=== PATIENT | female | born 1980 | race Caucasian/White ===

== ENCOUNTER → 2021-12-28 00:49 | Outpatient (CLI) | payer MEDICAID, SELFPAY ==
--- NOTE | 2021-12-28 14:00 | DI.US_ITS ---
Exam(s) US BREAST RT LIMITED MG MAMMO DIAGNOSTIC BI EXAM: MG MAMMO DIAGNOSTIC BI CLINICAL HISTORY: RT BREAST MASS 9 O'CLOCK, 1/2 DIAMETER, MOBILE; BASELINE MAMMO. TECHNIQUE: Bilateral full field digital CC and MLO mammographic images were obtained with 3D tomosyn thesis and utilizing computer aided detection (CAD). Craniocaudal and mediolateral oblique Full Field Digital Mammography views with Computer Aided Diagno sis followed by Tomosynthesis and right breast ultrasound. COMPARISON: Available for comparison. US US BREAST RT LIMITED from 12/28/2021. Baseline examination. FINDINGS: Masses/Architectural Distortion: None seen. Microcalcifications: No suspicious pleomorphic-type are seen. Skin Thickening/Nipple Retraction: None. Right breast US: Echotexture: Normal appearance of the glandular tissue. Shadowing: No suspicious foci. Cyst: 16 x 9 x 11 centimeter cyst in the 8 o'clock position 3 centimeters from the nipple, correspond ing to the palpable abnormality. Adjacent cyst measuring 8 x 4 x 8 millimeters in the 8 o'clock posi tion 4 cm from the nipple. IMPRESSION: 1. No significant interval change with no specific features of malignancy noted. Palpable abnormality corresponds to a 1.6 centimeters cyst. 2. Unless there is more urgent need, annual screening mammography is recommended, as per [place] [employer] guidelines. BI-RADS Category 1-negative Breast Density - Category D - extremely dense Breast Density Category D: The mammogram demonstrates the patient's breast tissue is dense. Dense melvin ast tissue is very common and is not abnormal but dense breast tissue can make it harder to find canc er on a mammogram. Also, dense breast tissue may increase their breast cancer risk. This information about the result of the mammogram report was provided to the patient to raise their awareness. Use th is report when you speak with the patient about their risks for breast cancer, which includes their f amily history. At that time, you may recommend for more screening tests (Ultrasound or MRI) as they m ight be useful based on their risk. A negative radiographic report should not delay biopsy if a dominant or clinically suspicious mass is present. Up to ten percent of cancers are not identified on mammography. A negative report may reinforce clinical impression. Adenosis and dense breasts may obscure an underlying neoplasm. False positive reports average 6 to 10%.
== END ==
PROVIDERS: PCP Naturopath; Visit Provider Naturopath
DX: N60.01 Solitary cyst of right breast (principal)
CPT/HCPCS: 76642; 77062; 77066; G0279

== ENCOUNTER → 2024-02-20 02:35 | Outpatient (CLI) | payer MEDICAID, SELFPAY ==
--- OUTSIDE RECORDS SUMMARY | 2024-02-15 00:37 | XMS_ITS | Encounter Summary ---
Author Organization [facility] Address [address] [place] [address] Care Team Providers Care Program Administrator Name Role Phone Radha Crocker ND Primary Care Provider + Encounter Details Date Type Department Care Team (Latest Contact Info) Description 10/02/2020 Travel Social History Tobacco Use Types Packs/Day Years Used Date Smoking Tobacco: Never Smokeless Tobacco: Never Interpersonal Safety Answer Date Record ed Physically Hurt Never 09/20/2020 Verbally Threaten Not on file 09/20/2020 Sex and Gender Information Value Date Recorded Sex Assigned at Not on file Gender Identity Female 10/02/2020 13:40 EST Sexual Orientation Not on file COVID-19 Exposure Response Date Recorded In the last month, have you been in contact with someone who was confirmed or suspected to have Coronavirus / COVID-19? No / Unsure 10/02/2020 13:41 EST documented as of this encounter Plan of Treatment Not on file documented as of this encounter Visit Diagnoses Not on filedocumented in this encounter Care Teams Program Administrator Relationship Specialty Start Date End Date Radha Crocker ND [address] [place] [phone] PCP - General 09/28/20 documented as of this encounter
--- OUTSIDE RECORDS SUMMARY | 2024-02-15 00:37 | XMS_ITS | Encounter Summary ---
Author Organization [facility] Address [address] [place] [address] Care Team Providers Care Oil Dispenser Name Role Phone Radha Crocker ND Primary Care Provider + Reason for Visit * Reason Comments Rash Encounter Details Date Type Department Care Team (Late st Contact Info) Description 10/09/2020 10:20 EDT Telemedicine [facility] Dermatology [address]th [address] [address] Marilin Hale MD PhD [address] [place] [address], [address] [place] [phone] Dermal hypersensitivity reaction (Primary Dx) Social History Tobacco Use Types Packs/Day Years [...] 13:41 EST documented as of this encounter Progress Notes * Marilin Hale MD - 10/09/2020 1020 EDT DERMATOLOGY TELEPHONE VISIT ESTABLISHED PATIENT 10/09/2020 Dermatology History: No specialty comments available. Chief Complaint: Rash Subjective: Jigna Loyola is a 40 y.o. who presents for telehealth visit for biopsy results. She hasbeen applying topical triamcinolone as directed without any noticeable. improvement. Interestingly,she has not been applying it to the lower back lesion that was biopsied but that spot is significantly smaller. She wonders if the immune system is busy with healing her biopsy site and that is distracting it from the rash. Objective: Pertinent exam findings the patient can observe: Biopsy site plaque significantly improved and smaller in size. Other locations stable. Lab Results Component Value Date FINALDX 10/02/2020 A. SKIN OF BACK, LOWER, PUNCH BIOPSY: - Sparse superficial perivascular dermatitis with melanophages. See microscopic and comment. Assessment and Plan: Dermal hypersensitivity reaction -Benign but non-diagnostic biopsy results relayed to the patient -Offered trial of a saline flush to a single lesion to see if it will re-set the local immune response. Follow Up: Patient can contact us through [employer] or call if skin concerns arise. Return in about 2 weeks (around 10/23/2020) for with Dr. Hale for saline injection (20min). Today's visit was provided through telemedicine telephone conferencing: ??? Patient location: Home ??? Provider location:Workplace ??? The following staff participated in today's encounter visit: Dr. Hale The concept of ???Telemedicine?? has been described to the patient.? Patient has been informed of the anticipated benefits and possible risks.? Patient understands the information provided regardingtelemedicine, has had the opportunity to ask questions about this information, and all questions have been answered to patient???s satisfaction. Patient consents for the use of telemedicine in his/her medical care and authorizes the transmission of any relevant medical information to providers and their staff involved in patient???s medical or mental health care. ??? For full Medical, Surgical, Family, and Social histories as well as Review of Systems, Medications and Allergies please see those sections of this encounter in the electronic chart which I have personally reviewed. This visit was conducted by telephone. I spent a total of 5 minutes in discussion with the patient as described in the progress note. Marilin Hale MD 10/09/2020 10:54 [facility], Division of Dermatology documented in this encounter Plan of Treatment Not on file documented as of this encounter Visit Diagnoses Diagnosis Dermal hypersensitivity reaction- Primary Contact dermatitis and other eczema, due to unspecified cause documented in this encounter Care Teams Oil Dispenser Relationship Specialty Start Date End Date Radha Crocker ND [address] [place] [phone] PCP - General 09/28/20 documented as of this encounter
--- OUTSIDE RECORDS SUMMARY | 2024-02-15 00:37 | XMS_ITS | Encounter Summary ---
Author Organization [facility] Address [address] [place] [address] Care Team Providers Care Genetic Technologist Name Role Phone Radha Crocker ND Primary Care Provider + Reason for Visit * Reason Onset Date Comments Appointment Related 10/09/2020 Encounter Details Date Type Department Care Team (Late st Contact Info) Description 10/09/2020 Telephone [facility] Dermatology 3rd Floor [address] [address] Marilin Hale MD PhD [address] [place] [address], [address] [place] [phone] Appointment Related Social History Tobacco Use Types Packs/Day Years [...] 13:41 EST documented as of this encounter Miscellaneous Notes * Telephone Encounter - Sofie Kowalski - 10/09/2020 1101 EDT Please schedule OV with Dr. Hale in 2 weeks (around 10/23) for saline injection (20 minutes) documented in this encounter Plan of Treatment Not on file documented as of this encounter Visit Diagnoses Not on filedocumented in this encounter Care Teams Genetic Technologist Relationship Specialty Start Date End Date Radha Crocker ND [address] [place] [phone] PCP - General 09/28/20 documented as of this encounter
--- OUTSIDE RECORDS SUMMARY | 2024-02-15 00:37 | XMS_ITS | Referral Summary ---
Author Organization [facility] Address [address] [place] [address] Care Team Providers Care Director E Learning Name Role Phone Radha Crocker ND Primary Care Provider + Allergies No known active allergies Medications Medication Sig Dispensed Refills Start Date End Date Status triamcinolone (KENALOG) 0.1 % cream Apply topically to affected area 2 times daily. To rash on trunk and extremities. Do not apply to face, armpit or groin. 80 g 5 10/02/2020 Active Active Problems No known active problems Social History Tobacco Use Types Packs/Day Years Used Date Smoking Tobacco: Never Smokeless Tobacco: Never Interpersonal Safety Answer Date Record ed Physically Hurt Never 09/20/2020 Verbally Threaten Not on file 09/20/2020 Sex and Gender Information Value Date Recorded Sex Assigned at Not on file Gender Identity Female 10/02/2020 13:40 EST Sexual Orientation Not on file Plan of Treatment Not on file Care Teams Director E Learning Relationship Specialty Start Date End Date Radha Crocker ND [address] [place] [phone] PCP - General 09/28/20
--- OUTSIDE RECORDS SUMMARY | 2024-02-15 00:37 | XMS_ITS | Encounter Summary ---
Author Organization [facility] Address [address] [place] [address] Care Team Providers Care Student Success Coach Name Role Phone Radha Crocker ND Primary Care Provider + Reason for Visit * Reason Onset Date Comments Other 10/02/2020 Encounter Details Date Type Department Care Team (Late st Contact Info) Description 10/02/2020 Telephone [facility] Dermatology [address]th [address] [address] Marilin Hale MD PhD [address] [place] [address], [address] [place] [phone] Other Social History Tobacco Use Types Packs/Day Years [...] encounter Miscellaneous Notes * Telephone Encounter - Ashleigh Olivera - 10/05/2020 7407 EDT Patient will call her PCP office to schedule an appointment. Patient will call back if they decline removing her sutures. * Telephone Encounter - Nora Bonilla - 10/02/2020 1342 EST Patient had an appointment with Dr. Hale today (10/02/2020) where she was asked to set up an appointment to get her sutures removed. Patient is requesting to have them removed at the office of her PCP. PCP has been confirmed - please advise. documented in this encounter Plan of Treatment Not on file documented as of this encounter Visit Diagnoses Not on filedocumented in this encounter Care Teams Student Success Coach Relationship Specialty Start Date End Date Radha Crocker ND [address] [place] [phone] PCP - General 09/28/20 documented as of this encounter
--- OUTSIDE RECORDS SUMMARY | 2024-02-15 00:37 | XMS_ITS | Encounter Summary ---
Author Organization [facility] Address [address] [place] [address] Care Team Providers Care Data Operations Leader Name Role Phone Unknown, Provider Primary Care Provider Encounter Details Date Type Department Care Team (Late st Contact Info) Description 01/07/2013 Results Only [facility] Laboratory Services - [facility] ([facility]) [address] [place], [place] [phone] Liliana Mauro, [address] [place] [phone] Social History Tobacco Use Types Packs/Day Years Used Date Smoking Tobacco: Never Assessed Sex and Gender Information Value Date Recorded Sex Assigned at Not on file Gender Identity Female 10/02/2020 13:40 EST Sexual Orientation Not on file documented as of this encounter Plan of Treatment Not on file documented as of this encounter Procedures Procedure Name Priority Date/Time Associated Diagnosis Comments PAP TEST- RESULT ONLY Routine 01/07/2013 0:00 EDT documented in this encounter Results * PAP TEST- RESULT ONLY (01/07/2013 0:00 EDT) Pathology Report: CYTOPATHOLOGY REPORT Reports generated via electronic interface contain original data; however they are lacking the format of the original report. Caution should be taken when reading/interpreti ng unformatted reports. Name: ? CHERYLEKahlil JIGNA E ? Accession #: ? [id number] : ? 1980 (Age: 32) ??F ?Collect Date: ? 01/07/2013 Location: ? [facility] ? Receive Date: ? 01/08/2013 Provider: ?LILIANA MAURO CUSTOMER PRICING MANAGER Copy to: ?HARSH ARCHDEACON ND ? Specimen/Source: ?Pap Test, Cervix/Endocervix, ThinPrep Imaging System with manual evaluation Last Menstrual Period: ? 2010 Other: ? Additional clinical information: breast feeding ? SPECIMEN ADEQUACY ? Satisfactory for Evaluation - transformation zone component present GENERAL CATEGORIZATION ? Negative for Intraepithelial Lesion or Malignancy ? Document reviewed and electronically signed by: ? GARRETT Duong(ASCP) ? Report Date: ??01/12/2013 11:39 End of Report SHANIA MCMILLAN 01/07/2013 01/08/2013 Liliana Mauro CUSTOMER PRICING MANAGER PATHOLOGY ORDERABLES SHANIA MCMILLAN [address] [place] [address] documented in this encounter Visit Diagnoses Not on filedocumented in this encounter Care Teams Data Operations Leader Relationship Specialty Start Date End Date Unknown, Provider, PCP - General 01/08/13 09/27/20 documented as of this encounter
--- OUTSIDE RECORDS SUMMARY | 2024-02-15 00:37 | XMS_ITS | Clinical Summary ---
Author Organization [facility] Address [address] [place] [address] Care Team Providers Care Research Professor Of Biostatistics Name Role Phone Radha Crocker ND Primary [...] 13:40 EST Sexual Orientation Not on file Obstetrics History Plan of Treatment Health Maintenance Due Date Last Done Comments Hepatitis C Screen 1980 Hepatitis B Vaccine (1 of 3 - 19+ 3-dose series) 08/01 COVID-19 Vaccine (2022-24 season) 2023 Care Teams Research Professor Of Biostatistics Relationship Specialty Start Date End Date Radha Crocker ND [address] [place] [address] AMANDA NAJERA [phone] PCP - General 09/28/20
--- OUTSIDE RECORDS SUMMARY | 2024-02-15 00:37 | XMS_ITS | Encounter Summary ---
Author Organization [facility] Address [address] [place] [address] Care Team Providers Care Agricultural Economics Teacher Name Role Phone Radha Crocker ND Primary Care Provider + Reason for Visit * Reason Comments New Patient Visit itchy hyperpigmentat ion on back and hips. Room 6 * Referral (Routine) - Closed Specialty Diagnoses / Procedures Referred By Conthebert t Referred To Contact Dermatology Diagnoses Hyperpigmented skin lesion Radha Crocker ND [address] [place] [phone] [employer] Dermatology [address] [place] [id number] Referral ID Status Reason Start Date Expiration Date Visits Re quested Visits Authorized [id number] Closed 1 1 Encounter Details Date Type Department Care Team ([facility] Contact Info) Description 10/02/2020 12:50 EST Office Visit [facility] Dermatology 5th Floor [facility] [address] [place] [address] Marilin Hale MD PhD [address] [facility], [address] [place] [address] Rash (Primary Dx); Pruritus Social History Tobacco Use Types Packs/Day Years [...] 13:41 EST documented as of this encounter Patient Instructions * Patient Instructions* Maria Cruz MD - 10/02/2020 12:50 EST DERMATOLOGY WOUND CARE INSTRUCTIONS FOR SKIN BIOPSY The DRESSING/BANDAID should remain in place for 24 hours. You may shower or bathe after 24 hours; remove the bandage and replace it after the shower. DISCOMFORT: Extra-Strength Tylenol, as directed by molded goods spot picker, usually relieves any pain you may have. BLEEDING: You may notice some blood on the edges of the dressing the first day and this is NORMAL. If the bleeding soaks through the dressing, remove the dressing, and apply firm, steady pressure with a moist clean wash cloth for fifteen minutes. If the bleeding stops, redress the wound, if not, call our office at . ACTIVITY: You may resume normal activity in 1 day unless instructed otherwise. WOUND CARE: ?? Wash hands with soap and water before changing the dressing. ?? Change the dressing daily and when it becomes wet. Clean the wound daily with mild soap and water. You may gently loosen any crusts with a cotton swab. The wound may be slightly tender and may bleed a small amount. A small amount of discharge is normal. Apply a thin layer of sterile petroleum jelly over the wound. Cover the wound with a Telfa (non-stick) dressing or bandage. It is important to keep the wound covered. CONTACT THE OFFICE IF YOU EXPERIENCE: ?? increased redness ?? warmth to touch ?? increased pain ?? drainage with a foul odor ?? rapid swelling of the wound ?? fever or chills Please call our office or . documented in this encounter Ordered Prescriptions Prescription Sig Dispensed Refills Start Date End Da te triamcinolone (KENALOG) 0.1 % cream Apply topically to affected area 2 times daily. To rash on trunk and extremities. Do not apply to face, armpit or groin. 80 g 5 10/02/2020 documented in this encounter Progress Notes * Christine Marmolejo MA - 10/02/2020 1250 EST Review of Systems Constitutional: Negative for fatigue, fever and unexpected weight change. HENT: Negative for mouth sores. Eyes: Negative for pain. Respiratory: Negative for cough and shortness of breath. Cardiovascular: Negative for chest pain and palpitations. Gastrointestinal: Negative for abdominal pain, blood in stool, constipation, diarrhea, nausea and vomiting. Genitourinary: Negative for dysuria, frequency and hematuria. Musculoskeletal: Negative for myalgias, joint swelling, arthralgias and muscle stiffness in the morning. Skin: Negative for rash. Neurological: Negative for numbness and headaches. Endo/Heme/Allergies: Does not bruise/bleed easily. Psychiatric/Behavioral: Positive for sleep disturbance. The patient is not nervous/anxious. CHRISTINE MARMOLEJO MA 10/02/2020 12:50 * Maria Cruz MD - 10/02/2020 1250 EST Images from the original note were not included. Dermatology Outpatient Visit Note Chief Complaint Patient presents with ??? New Patient Visit itchy hyperpigmentation on back and hips Dermatologic History: No specialty comments available. Last Dermatology office visit: New Patient Visit SUBJECTIVE Ms. Loyola is a 40 y.o. female who presents for new evaluation and treatment for itchy hyperpigmented patches on her back and hips, present for approximately 2 years. She originally thought it was dry itchy skin, but she has been moisturizing her skin without significant improvement. She has noticed a silvery look to the skin overlying the patches on occasion. She does not recall the spots beingpink in color, only dark in color. She denies a history of eczema or asthma. Denies a family history of eczema. Reports mild seasonal allergies. She currently has no medications in their medication list. She has No Known Allergies. OBJECTIVE Ms. Loyola is healthy, well developed, well-nourished and in no acute distress female sitting on the examination table with a normal affect. She has Welsh type II skin. Cutaneous full body examination including the hair, scalp, face, eyelids, lips, neck, chest, back, abdomen, all four extremities, hands, feet, digits and nails was performed.The examination was normal with the addition of the following comments: -back, hips: scattered 1.5 cm - 5 cm oval hyperpigmented patches ASSESSMENT/PLAN Rash -Recommended biopsy of the lesion located on the lower back given the diagnostic uncertainty. Ddx includes morphea vs multifocal fixed drug eruption vs mycosis fungoides vs eczema vs psoriasis vs macular amyloidosis vs lichen sclerosus et atrophicus vs erythema migrans vs other - Patient was advised of the risks of biopsy, including pain, infection, bleeding, and inevitability of scar formation. Patient was made aware he/she will be called with biopsy results when available, at which time further treatment recommendations will be made based on the results attained. The pat ient understood and was in agreement with this plan. - Lab ordered today: Lyme Ab Pruritus -Start topical triamcinolone 0.1% cream to be applied BID to hyperpigmented patches on trunk for itch. Avoid face, armpits, groin. Med Orders Placed This Visit and Additions to the Medication List Medications ??? triamcinolone (KENALOG) 0.1 % cream Sig: Apply topically to affected area 2 times daily. To rash on trunk and extremities. Do not applyto face, armpit or groin. Dispense: 80 g Refill: 5 She will f/u in 1 week for telephone visit to discuss biopsy results of rash as planned or in the interim should problems arise. Maria Cruz MD 10/02/2020 13:06 Attestation Statement: I saw and examined the patient with the resident/fellow. I agree with the findings and plan of care documented in the resident's/fellow's note. I was present during the adams andcritical portions of the procedure and agree with the resident's/fellow note. Mairlin Hale MD Dermatology [facility] For full Medical, Surgical, Family, and Social histories, please see the History section of this encounter in the electronic chart which I have personally reviewed. For Review of Systems, Medications and Allergies, please see those sections of this encounter in the electronic chart which I have also reviewed. documented in this encounter Miscellaneous Notes * Result Encounter Note - Marilin Hale MD - 10/02/2020 1250 EST Normal, please contact the patient to tell her about the results: no lyme. No changes to plan. Lyme AbNegativeNegative Comment: New 3rd generation assay in use 01/01/2020 Marilin Hale MD 10/05/2020 16:08 * Result Encounter Note - Marilin Hale MD - 10/02/2020 1250 EST Notified patient of diagnosis. See clinic note. Lab Results Component Value Date FINALDX 10/02/2020 A. SKIN OF BACK, LOWER, PUNCH BIOPSY: - Sparse superficial perivascular dermatitis with melanophages. See microscopic and comment. [FORMATTING REMOVED] Marilin Hale MD documented in this encounter Plan of Treatment Not on file documented as of this encounter Procedures Procedure Name Priority Date/Time Associated Diagnosis Comments LYME AB Routine 10/02/2020 13:54 EST Rash SURGICAL PATHOLOGY Routine 10/02/2020 13 :10 EST Rash documented in this encounter Results * LYME AB (10/02/2020 13:54 EST) Lyme Ab Negative Negative 10/05/2020 11:15 EDT [facility] Comment:New 3rd generation a ssay in use 01/01/2020 Blood VENOUS BLOOD / Unknown Venipuncture / Unknown 10/02/2020 13:54 EST 10/02/2020 14:37 EST Marilin Hale MD PhD IMMUNOLOGY AND SE ROLOGY ORDERABLES [facility] [address] [place] [address] * SURGICAL PATHOLOGY (10/02/2020 13:10 EST) Final Diagnosis A. SKIN OF BACK, LOWER, PUNCH BIOPSY: - Sparse superficial perivascular dermatitis with melanophages. See microscopic and comment. 10/06/2020 11:12 [facility] Diagnosis Comment The findings are most suggestive of postinflammatory pigmentary alteration. Amyloid is not noted by Congo red staining. There is relatively sparse inflammation within the dermis, but no well-developed atypia or epidermal extension to support a diagnosis of cutaneous T-cell lymphoma. Neither well-developed spongiosis or interface alteration are identified to support an eczematous process or fixed-drug eruption, respectively. 10/06/2020 11:12 [facility] Attestation By the signature below, the attending physician certifies that they have 1) personally conducted a gross and/or microscopic examination of the described specimen(s), and/or personally interpreted the results of laboratory testing of the described specimen(s), and 2) personally rendered or confirmed the above diagnosis. 10/06/2020 11:12 [facility] at 1112 Microscopic Description Sections consist of a punch biopsy of skin. There is basket weave orthokeratosis overlying an epidermis which shows a variable distribution of melanin pigment within the keratinocytes. There is no evidence of interface alteration. Within the superficial papillary dermis is slight homogenization of the collagen, but no definitive amyloid by Congo red stain. Dermal melanophages are present. There is a sparse, superficial perivascular lymphomononuclear infiltrate. Within the deeper dermis, the collagen bundles show fenestrations with associated foci of hemorrhage. Deeper levels have been examined. 10/06/2020 11:12 [facility] Clinical History Lower back, hyperpigmented pruritic patches on trunk; PIH vs morphea vs MF vs eczema vs multifocal fixed drug vs macular amyloid vs other; clinical diagnosis code: R21 10/06/2020 11:12 EDT [facility] Gross Description A. Received in formalin labelled with proper patient identification (initials P, E) and lower back is a punch biopsy of cunningham-brown skin (0.4 cm in diameter by 0.6 cm in depth). The specimen is bisected and submitted entirely in A1. JENNA REICH(ASCP) 10/02/2020 14:41 10/06/2020 11:12 EDT [facility] Performing Lab [facility] 10/06/2020 11:12 EDT [facility] Scanned Images 10/06/2020 11:12 T [facility] Tissue TISSUE SPECIMEN FROM SKIN / Unknown Collection, Other / Unknown 10/02/2020 13:10 EST 10/02/2020 14:21 EST Marilin Hale MD PhD PATHOLOGY ORDERAB LES [facility] [address] [place] [address] documented in this encounter Visit Diagnoses Diagnosis Rash- Primary Rash and other nonspecific skin eruption Pruritus Unspecified pruritic disorder documented in this encounter Care Teams Agricultural Economics Teacher Relationship Specialty Start Date End Date Radha Crocker ND [address] [place] [phone] PCP - General 09/28/20 documented as of this encounter
--- NOTE | 2024-02-20 | DI.MAMMO_ITS ---
Exam(s) MAMMO SCREENING EXAM: MAMMO SCREENING CLINICAL HISTORY: Z12.31 Screening. TECHNIQUE: Bilateral full field digital CC and MLO mammographic images were obtained with 3D tomosyn thesis and utilizing computer aided detection (CAD). COMPARISON: 28 December 2021 FINDINGS: Masses: None seen. Architectural Distortion: None seen. Microcalcifications: No suspicious pleomorphic-type are seen. Skin Thickening/Nipple Retraction: None. IMPRESSION: 1. No significant interval change with no specific features of malignancy noted. 2. Unless there is more urgent need, annual screening mammography is recommended, as per [place] [employer] guidelines. BI-RADS Category 1-negative Breast Density - Category D - extremely dense Breast Density Category D: The mammogram demonstrates the patient's breast tissue is dense. Dense melvin ast tissue is very common and is not abnormal but dense breast tissue can make it harder to find canc er on a mammogram. Also, dense breast tissue may increase their breast cancer risk. This information about the result of the mammogram report was provided to the patient to raise their awareness. Use th is report when you speak with the patient about their risks for breast cancer, which includes their f amily history. At that time, you may recommend for more screening tests (Ultrasound or MRI) as they m ight be useful based on their risk. A negative radiographic report should not delay biopsy if a dominant or clinically suspicious mass is present. Up to ten percent of cancers are not identified on mammography. A negative report may reinforce clinical impression. Adenosis and dense breasts may obscure an underlying neoplasm. False positive reports average 6 to 10%.
--- OUTSIDE RECORDS SUMMARY | 2024-02-20 02:37 | XMS_ITS | Encounter Summary ---
Author Organization [facility] Address [address] [place] [address] Care Team Providers Care Recruiting Coordinator Name Role Phone Radha Crocker ND Primary Care Provider + Reason for Visit * Reason Comments Rash Encounter Details Date Type Department Care Team (Late st Contact Info) Description 10/09/2020 10:20 EDT Telemedicine [facility] Dermatology [address]th [address] [address] Marilin Hale MD PhD [address] [place] [address], [address] [place] [phone] Dermal hypersensitivity reaction (Primary Dx) Social History [...] Follow Up: Patient can contact us through [facility] or call if skin concerns arise. Return [...] cause documented in this encounter Care Teams Recruiting Coordinator Relationship Specialty Start Date End Date Radha Crocker ND [address] [place] [phone] PCP - General 09/28/20 documented as of this encounter
--- OUTSIDE RECORDS SUMMARY | 2024-02-20 02:37 | XMS_ITS | Encounter Summary ---
Author Organization [facility] Address [address] [place] [address] Care Team Providers Care Public Stenographer Name Role Phone Radha Crocker ND Primary Care Provider + Reason for Visit * Reason Comments New Patient Visit itchy hyperpigmentat ion on back and hips. Room 6 * Referral (Routine) - Closed Specialty Diagnoses / Procedures Referred By Conthebert t Referred To Contact Dermatology Diagnoses Hyperpigmented skin lesion Radha Crocker ND [address] [place] [phone] [facility] Ep[facility] Med Dermatology [address] [place] [id number] Referral ID Status Reason Start Date Expiration Date Visits Re quested Visits Authorized [id number] Closed 1 1 Encounter Details Date Type Department Care Team ([facility] Contact Info) Description 10/02/2020 12:50 EST Office Visit [facility] Dermatology 5th Floor [facility] [address] [place] [address] Marilin Hale MD PhD [address] [facility], [address] [place] [address] Rash (Primary Dx); Pruritus Social [...] shower. DISCOMFORT: Extra-Strength Tylenol, as directed by vocational rehabilitation counselor, usually relieves any pain you may have. [...] procedure and agree with the resident's/fellow note. Marilin Hale MD Dermatology [facility] For full Medical, Surgical, Family, and Social [...] Lyme Ab Negative Negative 10/05/2020 11:15 EDT [facility] Comment:New 3rd generation a ssay in use 01/01/2020 Blood VENOUS BLOOD / Unknown Venipuncture / Unknown 10/02/2020 13:54 EST 10/02/2020 14:37 EST Marilin Hale MD PhD IMMUNOLOGY AND SE ROLOGY ORDERABLES [facility] [address] [place] [address] * SURGICAL PATHOLOGY (10/02/2020 13:10 EST) Final Diagnosis A. SKIN OF BACK, LOWER, PUNCH BIOPSY: - Sparse superficial perivascular dermatitis with melanophages. See microscopic and comment. 10/06/2020 11:12 [facility] Diagnosis Comment The findings are most suggestive of postinflammatory pigmentary alteration. Amyloid is not noted by Congo red staining. There is relatively sparse inflammation within the dermis, but no well-developed atypia or epidermal extension to support a diagnosis of cutaneous T-cell lymphoma. Neither well-developed spongiosis or interface alteration are identified to support an eczematous process or fixed-drug eruption, respectively. 10/06/2020 11:12 [facility] Attestation By the signature below, the attending physician certifies that they have 1) personally conducted a gross and/or microscopic examination of the described specimen(s), and/or personally interpreted the results of laboratory testing of the described specimen(s), and 2) personally rendered or confirmed the above diagnosis. 10/06/2020 11:12 [facility] at 1112 Microscopic Description Sections [...] Deeper levels have been examined. 10/06/2020 11:12 [facility] Clinical History Lower back, hyperpigmented pruritic patches on trunk; PIH vs morphea vs MF vs eczema vs multifocal fixed drug vs macular amyloid vs other; clinical diagnosis code: R21 10/06/2020 11:12 EDT [facility] Gross Description A. Received in formalin labelled with proper patient identification (initials P, E) and lower back is a punch biopsy of cunningham-brown skin (0.4 cm in diameter by 0.6 cm in depth). The specimen is bisected and submitted entirely in A1. JENNA REICH(ASCP) 10/02/2020 14:41 10/06/2020 11:12 EDT [facility] Performing Lab [facility] 10/06/2020 11:12 EDT [facility] Scanned Images 10/06/2020 11:12 T [facility] Tissue TISSUE SPECIMEN FROM SKIN / Unknown Collection, Other / Unknown 10/02/2020 13:10 EST 10/02/2020 14:21 EST Marilin Hale MD PhD PATHOLOGY ORDERAB LES [facility] [address] [place] [address] documented in this encounter Visit Diagnoses Diagnosis Rash- Primary Rash and other nonspecific skin eruption Pruritus Unspecified pruritic disorder documented in this encounter Care Teams Public Stenographer Relationship Specialty Start Date End Date Radha Crocker ND [address] [place] [phone] PCP - General 09/28/20 documented as of this encounter
--- OUTSIDE RECORDS SUMMARY | 2024-02-20 02:37 | XMS_ITS | Referral Summary ---
Author Organization [facility] Address [address] [place] [address] Care Team Providers Care Cabin Agent Name Role Phone Radha Crocker ND Primary [...] of Treatment Not on file Care Teams Cabin Agent Relationship Specialty Start Date End Date Radha Crocker ND [address] [place] [phone] PCP - General 09/28/20
--- OUTSIDE RECORDS SUMMARY | 2024-02-20 02:37 | XMS_ITS | Encounter Summary ---
Author Organization [facility] Address [address] [place] [address] Care Team Providers Care Certified Mortician Name Role Phone Radha Crocker ND Primary [...] on filedocumented in this encounter Care Teams Certified Mortician Relationship Specialty Start Date End Date Radha Crocker ND [address] [place] [phone] PCP - General 09/28/20 documented as of this encounter
--- OUTSIDE RECORDS SUMMARY | 2024-02-20 02:37 | XMS_ITS | Clinical Summary ---
Author Organization [facility] Address [address] [place] [address] Care Team Providers Care Computer Language Coder Name Role Phone Radha Crocker ND Primary [...] COVID-19 Vaccine (2022-24 season) 2023 Care Teams Computer Language Coder Relationship Specialty Start Date End Date Radha Crocker ND [address] [place] [address] AMANDA NAJERA [phone] PCP - General 09/28/20
--- OUTSIDE RECORDS SUMMARY | 2024-02-20 02:37 | XMS_ITS | Encounter Summary ---
Author Organization [facility] Address [address] [place] [address] Care Team Providers Care Commercial Parts Professional Name Role Phone Unknown, Provider Primary Care Provider Encounter Details Date Type Department Care Team (Late st Contact Info) Description 01/07/2013 Results Only [facility] Laboratory Services - [facility] ([facility] [address] [place], [place] [id number] Liliana Mauro, [address] [place] [address] Social History Tobacco Use Types [...] when reading/interpreti ng unformatted reports. Name: ? CHERYLEFARIBA CarrizalesALBINO Carrizales ? Accession #: ? [id number] : ? 1980 (Age: 32) ??F ?Collect Date: ? 01/07/2013 Location: ? [facility] ? Receive Date: ? 01/08/2013 Provider: ?LILIANA MAURO HAND ICER Copy to: ?HARSH ARCHDEACON ND ? Specimen/Source: [...] Report SHANIA MCMILLAN 01/07/2013 01/08/2013 Liliana Mauro HAND ICER PATHOLOGY ORDERABLES SHANIA MCMILLAN [address] [place] [address] documented in this encounter Visit Diagnoses Not on filedocumented in this encounter Care Teams Commercial Parts Professional Relationship Specialty Start Date End Date Unknown, Provider, PCP - General 01/08/13 09/27/20 documented as of this encounter
--- OUTSIDE RECORDS SUMMARY | 2024-02-20 02:37 | XMS_ITS | Encounter Summary ---
Author Organization [facility] Address [address] [place] [address] Care Team Providers Care Credit Administrator Name Role Phone Radha Crocker ND Primary Care Provider + Reason for Visit * Reason Onset Date Comments Other 10/02/2020 Encounter Details Date Type Department Care Team (Late st Contact Info) Description 10/02/2020 Telephone [facility] Dermatology [address]th [address] [address] Marilin Hale MD PhD [address] [place] [address], [address] [place] [address] Other Social History Tobacco Use [...] Telephone Encounter - Ashleigh Olivera - 10/05/2020 8700 EDT Patient will call her PCP office [...] on filedocumented in this encounter Care Teams Credit Administrator Relationship Specialty Start Date End Date Radha Crocker ND [address] [place] [phone] PCP - General 09/28/20 documented as of this encounter
--- OUTSIDE RECORDS SUMMARY | 2024-02-20 02:37 | XMS_ITS | Encounter Summary ---
Author Organization [facility] Address [address] [place] [address] Care Team Providers Care Copyist Name Role Phone Radha Crocker ND Primary Care Provider + Reason for Visit * Reason Onset Date Comments Appointment Related 10/09/2020 Encounter Details Date Type Department Care Team (Late st Contact Info) Description 10/09/2020 Telephone [facility] Dermatology 3rd [address] [address] Marilin Hale MD PhD [address] [place] [address], [address] [place] [address] Appointment Related Social History Tobacco [...] on filedocumented in this encounter Care Teams Copyist Relationship Specialty Start Date End Date Radha Crocker ND [address] [place] [phone] PCP - General 09/28/20 documented as of this encounter
== END ==
PROVIDERS: PCP Naturopath; Visit Provider Naturopath
DX: Z12.31 Encounter for screening mammogram for malignant neoplasm of breast (principal); Z80.3 Family history of malignant neoplasm of breast; Z85.3 Personal history of malignant neoplasm of breast; R92.8 Other abnormal and inconclusive findings on diagnostic imaging of breast; N64.4 Mastodynia; N64.52 Nipple discharge; R92.343 Mammographic extreme density, bilateral breasts
CPT/HCPCS: 77063; 77067